=== PATIENT | male | born 1950 | race Caucasian/White ===

== ENCOUNTER 2022-03-03 17:58 | Observation (INO) | payer MEDICARE, BC, SELFPAY ==
[2022-03-03] VITALS (26 sets, daily range): BP systolic 141–181; BP diastolic 56–100; PULSE 59–68; RESP 18–20; TEMP 36.8; O2SAT 92–96; BMI 33.2; BMI 34.0
--- NOTE | 2022-03-03 19:20 | ED_ITS ---
HPI - General Adult General Date Seen: 03/03/22 Chief complaint: Difficulty Swallowing Stated complaint: Blurred vision, troubling swallowing Time Seen by Provider: 03/03/22 18:04 Source: patient and family History of Present Illness HPI narrative: Patient is a 71-year-old male with the past medical history of coronary artery disease, complete heart block, status post stenting most recently in 2017 and pacemaker placement, with onset of diplopia yesterday morning at about 9:00 a.m., and dysarthria which he noticed 1st this morning at about 7:00 a.m.. His says that his speech was normal last night when he went to bed. He does not report a headache at all. He has no prior history of stroke. He says he was driving yesterday morning when he noted that there were [address] road rather than 1. He says that the diplopia comes and goes. He says that he met a friend for coffee this morning who told him that his speech sounded off, and retrospectively he does feel that his speech is not normal. He says he called his cardiology clinic and was told to go in right away, they live normally in [place] but [place], so the closest place was [email or web address]. They went there, and had head CT and lab work, which they were told was normal. However, they were told to go somewhere that they could get an MRI. Therefore, they came here. He says after going to [email or web address] for the CT scan, he wanted to celebrate, so they stopped to get a soda. He says when he was trying to drink from a straw he noted that it was difficult to manipulate his tongue and swallow using a straw. He has not noted any difficulty with balance or hearing, he has not had any difficulty with weakness in his arms or legs, and has not had any sensory changes. He takes a baby aspirin daily. Related Data Home Medications Medication Instructions Recorded Confirmed aspirin 81 mg capsule 81 mg PO DAILY 03/03/22 03/03/22 bisoprolol fumarate 5 mg tablet 5 mg PO DAILY 03/03/22 03/03/22 finasteride 5 mg tablet (Proscar) 5 mg PO DAILY 03/03/22 03/03/22 lisinopril 20 mg tablet 20 mg PO DAILY 03/03/22 03/03/22 lorazepam 0.5 mg tablet (Ativan) 0.5 mg PO HS PRN 03/03/22 03/04/22 magnesium citrate 100 mg capsule 100 mg PO DAILY 03/03/22 03/03/22 nitroglycerin 0.4 mg sublingual 0.4 mg sublingual Q5M 03/03/22 03/03/22 tablet (Nitrostat) triamterene 37.5 1 tab PO DAILY 03/03/22 03/03/22 mg-hydrochlorothiazide 25 mg tablet (Maxzide-25mg) KYOLIC 03/04/22 amlodipine 10 mg tablet 10 mg PO DAILY 03/04/22 03/04/22 coenzyme Q10 200 mg capsule (Co 200 mg PO DAILY 03/04/22 03/04/22 Q-10) indomethacin 50 mg capsule 50 mg PO Q6H PRN 03/04/22 03/04/22 xzubncgj-pju-umqgh acid 300 1 tab PO DAILY 03/04/22 03/04/22 mcg-lycopene 600 mcg-lutein 300 mcg tablet (Centrum Silver Men) Previous Rx's Medication Instructions Recorded atorvastatin 40 mg tablet (Lipitor) 80 mg PO DAILY #60 tabs 03/04/22 clopidogrel 75 mg tablet 75 mg PO DAILY #30 tabs 03/04/22 Allergies Allergy/AdvReac Type Severity Reaction Status Date / Time Beta-Blockers Allergy Unknown Verified 03/03/22 18:35 (Beta-Adrenergic Bloc Review of Systems Status of ROS: Reports: 10 or more systems reviewed and unremarkable except as noted in History and below [facility] Medical History (Updated 03/03/22 @ 23:37 by Reji Esquivel MD) Benign prostatic hyperplasia Cataract Colon polyps Coronary artery disease Diverticulosis Essential hypertension Gout Hyperlipidemia Obesity Obstructive sleep apnea Presence of permanent cardiac pacemaker Psychophysiological insomnia Rotator cuff impingement syndrome of right shoulder Surgical History Stented coronary artery Family History Sister Uterine cancer Father Dementia Mother Dementia Brother Malignant melanoma Social History Smoking Status: Never smoker Do you use any of these nicotine containing products: None Second hand tobacco smoke exposure: No How often do you have a drink containing alcohol: never How often do you have six or more drinks on one occasion: Never AUDIT-C Alcohol total score: 0 Non-prescribed substance use: denies use Caffeine: Yes (couple cups coffee per day) service: No Exam Narrative: Exam Narrative: Vital signs as noted above. In general, an alert, nontoxic elderly male. Head: Normocephalic, atraumatic. Eyes: Pupils are equal reactive. Extraocular movements are full. Conjunctivae are normal. ENT: Mucous membranes are moist. Throat is normal. Neck: Supple without lymphadenopathy. Heart: Regular rate and rhythm. No murmur or rub. Lungs: Clear bilaterally. No increased work of breathing, crackles or wheezes. Abdomen: Soft and nontender. No organomegaly. Extremities: Well perfused. No edema. No calf tenderness. Pulses intact. Neurologic: Patient is alert and oriented to person and place. Speech is fluent but dysarthric. Face is symmetric. Moves all extremities equally, strength is 5 5 bilaterally. Fine motor function is intact. Cerebellar function is intact by finger-nose testing. Diplopia on leftward and downward gaze, clears with rightward and upward gaze. Affect: Normal. Skin: Warm and dry. Well perfused. Const: Vital Signs, click to edit/add: Vital Signs - 24 hr 03/03/22 18:30 03/03/22 18:19 03/03/22 18:20 Temperature 98.3 F Pulse Rate 67 68 Pulse Rate [Left] 60 Blood Pressure 158/95 H Blood Pressure [Ri ght Upper Arm] 158/95 H Pulse Oximetry 92 95 93 Oxygen Delivery Me thod Room Air 03/03/22 18:25 03/03/22 18:30 03/03/22 18:45 Temperature Pulse Rate 64 61 60 Pulse Rate [Left] Blood Pressure 162/95 H Blood Pressure [Ri ght Upper Arm] Pulse Oximetry 92 94 92 Oxygen Delivery Me thod 03/03/22 18:55 03/03/22 19:00 03/03/22 19:15 Temperature Pulse Rate 60 60 60 Pulse Rate [Left] Blood Pressure 157/87 H Blood Pressure [Ri ght Upper Arm] Pulse Oximetry 93 92 93 Oxygen Delivery Me thod 03/03/22 19:24 03/03/22 19:30 03/03/22 19:45 Temperature Pulse Rate 63 61 60 Pulse Rate [Left] Blood Pressure 157/100 H Blood Pressure [Ri ght Upper Arm] Pulse Oximetry 93 95 92 Oxygen Delivery Me thod 03/03/22 19:54 03/03/22 20:00 03/03/22 20:15 Temperature Pulse Rate 59 L 60 60 Pulse Rate [Left] Blood Pressure 154/94 H Blood Pressure [Ri ght Upper Arm] Pulse Oximetry 94 92 95 Oxygen Delivery Me thod 03/03/22 20:30 03/03/22 20:33 03/03/22 20:45 Temperature Pulse Rate 60 60 60 Pulse Rate [Left] Blood Pressure 148/92 H Blood Pressure [Ri ght Upper Arm] Pulse Oximetry 94 96 96 Oxygen Delivery Me thod 03/03/22 21:00 03/03/22 21:03 Temperature Pulse Rate 60 60 Pulse Rate [Left] Blood Pressure 153/99 H Blood Pressure [Ri ght Upper Arm] Pulse Oximetry 95 95 Oxygen Delivery Me thod Course Course Hospital Course: Following initial evaluation, I began to look into MRI testing. I did give him an aspirin, 325 mg. Patient does have an MR conditional pacemaker, but we do not do MRIs with pacemakers here. I talked with Neurology at [facility], who recomm ended ideally MRI, dual anti-platelet therapy. There were no beds at [facility], I called around to other [facility] and there were no med/surg beds available anywhere. Barring that, neurology recommended doing a CT angiogram here, admission for observation and dual antiplatelet therapy, then outpatient referral to primary care and MRI at a center with pacemaker compatible MRI. Therefore, given lack of available beds, we will keep him here for admission overnight, observation and outpatient follow-up. CT angiogram is pending at this time. He has been neurologically stable and without other complaints. Reevaluation(s) Reevaluation #1: Patient remained stable throughout his ER stay. CT angiogram was unremarkable per Radiology read. Patient admitted to floor under [facility] care. Suspect brainstem stroke, with symptom onset over [address] of the head with out contrast was done at [facility], presumably negative. Without MR imaging other possible causes such as mass or multiple sclerosis could not be ruled out, but given patient's age and onset of symptoms, I think stroke is more likely. Vital Signs Vital signs: Initial Vital Signs Pulse Rate 67 03/03/22 18:19 Pulse Oximetry 95 03/03/22 18:19 Vital Signs Pulse Rate 67 03/03/22 18:19 Pulse Oximetry 95 03/03/22 18:19 Temperature 98.1 F 03/04/22 15:15 Pulse Rate 60 03/04/22 16:38 Respiratory Rate 16 03/04/22 15:15 Blood Pressure 137/85 03/04/22 15:15 Pulse Oximetry 92 03/04/22 15:15 Oxygen Delivery Method 03/04/22 15:15 Medical Decision Making Lab Data Labs: Lab Results 03/03/22 Range/Units 21:02 POC Creatinine 0.9 (0.6-1.3) mg/dl Discharge Plan Discharge Condition: Stable Activity Level: No Restrictions Discharge Diet: Heart Healthy (2 gm sodium, low fat)
[2022-03-03] MEDS: ASPIRIN 81 MG TAB.CHEW 324 MG PO (19:25)
--- NOTE | 2022-03-03 20:12 | CT_ITS ---
Patient: JOSE ALBERTO ZAZUETA Facility:?[facility] Patient ID:?[id number] Site Patient ID:?[id number]. Site :?[id number] Study:?CT-Head Angio W/IV CONTRAST-03/03/2022 9:31:46 PM Ordering Physician:Minal May Final Report: DATE: 03/03/2022. CLINICAL HISTORY: Blurred vision; trouble swallowing. TECHNIQUE: Standard helical CT image acquisition through the head and neck was performed after intravenous contrast bolus enhancement. Multiplanar reconstructed images were performed and interpreted. COMPARISON: None available. FINDINGS: The origins of the great vessels from the aortic arch are patent. The origins of the right and left vertebral arteries are patent. The common carotid arteries are patent. No significant luminal stenoses of the proximal internal carotid arteries by NASCET criteria. The more distal cervical segments of the internal carotid arteries are patent. The cervical segments of the vertebral arteries are patent. Scattered intracranial atherosclerotic disease without proximal large vessel occlusion or flow-limiting luminal stenosis. No evidence of cerebral aneurysm or findings to suggest an arteriovenous shunting lesion. IMPRESSION: 1. No intracranial proximal large vessel occlusion or flow-limiting luminal stenosis. 2. Patent cervical arterial vasculature without hemodynamically significant luminal stenosis. Please note that all CT scans at this facility use dose modulation, iterative reconstruction, and/or weight-based dosing when appropriate to reduce radiation dose to as low as reasonably achievable. Dictated by Shubham Quinonez MD @ 03/04/2022 5:41:34 PM Signed by:?Shubham Quinonez MD @03/04/2022 5:41:34 PM (Electronic Signature)
[2022-03-03 21:16] LABS: Creatinine, Point-of-Care* 0.9 mg/dl (0.6-1.3)
--- NOTE | 2022-03-03 22:33 | ED.NURSE ---
Patient to transfer to med/surg via wheelchair with library cataloging technician.
--- NOTE | 2022-03-03 23:10 | P.IMHP_ITS ---
Hospitalist- H&P: [place] History of Present Illness Time Seen by Provider: 22:00 Date Seen: 03/03/22 Chief complaint: Double vision, slurred speech Narrative: Junito Kwan is a 71 year old man was in his usual state of health until yesterday around 9:00 a.m. in the morning he noticed vertical diplopia. He noticed yesterday that if he would closed 1 eye then he would see perfectly fine. He would close the other eye and he would see perfectly fine also. He open both eyes and he had vertical diplopia. He had only about 2 hours of sleep the night prior, so he thought nothing of the diplopia except for the thought that if he got some sleep maybe would resolve. It did not resolve. Still has diplopia today. Notice slurred speech today as well. He had no concerns understanding others or articulating himself except for he felt that his speech was slurred. Denied any other focal motor neurologic deficits. Has not had palpitations or chest fluttering. Has not had chest heaviness, pressure, tightness, or pain. Denies syncope or near-syncope. Denies nausea or vomiting. Called his wool washing machine operator who recommended that he be assessed for this promptly. He lives variously between [place], [place], and his [place]s farm which is near [place], [place]. He contemplated going to [facility] where he receives most of his health cares, but opted instead to go to [facility] since he was told to get immediate evaluation and treatment and he has been here in the [place] area this week. In [place] they assessed him and indicated that they did not think he had an acute stroke and they then discharged him. The patient tells me that he had a simple CT scan without contrast. He later called his nephew who is a physician. His nephew after hearing that he had diplopia as well as his slurred speech recommended that he go to a hospital where they have an MRI so they can do more appropriate testing. The patient heard that [facility] as an MR scan and thus came over here for further testing. Unfortunately the patient has a permanent pacemaker implantation and we do not have the capability of studying him safely in our MR scan. Nevertheless the CT angiogram of the head and neck was performed and demonstrates no obvious acute abnormalities. Stroke Neurology was called and the case was discussed. They recommended admission for observation and consider outpatient MR scan if still warranted. Additionally they recommended initiation of treatment for possible stroke. Review of Systems Status of ROS: Reports: 10 or more systems reviewed and unremarkable except as noted in History and below Narrative: Denies fevers, rigors, diaphoresis. Denies night sweats or weight loss. Denies myalgias or arthralgias. Denies rashes. No recent acute illness. No recent trauma or injury. No blood loss of any sort. No recent travel outside the [facility]. Again no other focal motor neurologic deficits. Denies dyspnea at rest, paroxysmal nocturnal dyspnea, orthopnea, or dyspnea with exertion. Denies cough. No polyuria, polydipsia, polyphagia. No dysuria, urgency, frequency, or hematuria. No diarrhea or constipation. Designates his as power of compensation manager for health should that be required. Requests full resuscitation in the event of cardiopulmonary demise, but clearly states that he does not want to be kept alive in a persistent vegetative state. [facility] Medical History (Updated 03/03/22 @ 23:37 by Reji Esquivel MD) Benign prostatic hyperplasia Cataract Colon polyps Coronary artery disease Diverticulosis Essential hypertension Gout Hyperlipidemia Obesity Obstructive sleep apnea Presence of permanent cardiac pacemaker Psychophysiological insomnia Rotator cuff impingement syndrome of right shoulder Surgical History Stented coronary artery Family History Sister Uterine cancer Father Dementia Mother Dementia Brother Malignant melanoma Social History Smoking Status: Never smoker Do you use any of these nicotine containing products: None Second hand tobacco smoke exposure: No How often do you have a drink containing alcohol: never How often do you have six or more drinks on one occasion: Never AUDIT-C Alcohol total score: 0 Non-prescribed substance use: denies use Meds Home Medications and Allergies Home Medications Medication Instructions Recorded Confirmed Type aspirin 81 mg capsule 81 mg PO DAILY 03/03/22 03/03/22 History atorvastatin 40 mg tablet 40 mg PO DAILY 03/03/22 03/03/22 History bisoprolol fumarate 5 mg tablet 5 mg PO DAILY 03/03/22 03/03/22 History finasteride 5 mg tablet (Proscar) 5 mg PO DAILY 03/03/22 03/03/22 History indomethacin 50 mg 03/03/22 History lisinopril 20 mg tablet 20 mg PO DAILY 03/03/22 03/03/22 History lorazepam 0.5 mg tablet (Ativan) 0.5 mg PO DAILY 03/03/22 03/03/22 History magnesium citrate 100 mg capsule 100 mg PO DAILY 03/03/22 03/03/22 History nitroglycerin 0.4 mg sublingual 0.4 mg sublingual Q5M 03/03/22 03/03/22 History tablet (Nitrostat) ticagrelor .ROUTE 03/03/22 History triamterene 37.5 1 tab PO DAILY 03/03/22 03/03/22 History mg-hydrochlorothiazide 25 mg tablet (Maxzide-25mg) Allergies Allergy/AdvReac Type Severity Reaction Status Date / Time Beta-Blockers Allergy Unknown Verified 03/03/22 18:35 (Beta-Adrenergic Bloc Exam Narrative: Exam Narrative: Appears comfortable, no acute distress. Friendly, articulate, cooperative. Mood and affect are congruent. Alert, oriented to self, place, time, situation. Thoughtful, excellent recall, excellent executive function. Hearing is grossly normal. Vision is actually grossly normal as well. Pupils are equally round and reactive to light and accommodation. Extraocular muscles are intact. No icterus or conjunctival injection. Slight facial droop on the right, according to patient and his this is not new. Dentition in fair repair. Tight oral aperture. Gag reflex intact. Able to swallow liquids without cough or aspiration. Tongue does not deviate to 1 side or the other. Able to perform pa-ta-ka articulation maneuvers and integrate these without deficit. No focal motor neurologic deficits of upper and lower extremities. Strength testing is full in upper and lower extremities. Deep tendon reflexes are full in upper and lower extremities. Negative Babinski. Independent in transfer, station, and gait. No tremor, asterixis, or ataxia. Neck is supple. Midline trachea. Normal thyroid. No JVD, hepatojugular reflux, or carotid bruits. Lungs are clear to auscultation, without wheezing, rhonchi, or rales. Chest wall excursions are full. No CVA tenderness. Heart tones with regular rhythm, normal S1-S2, without murmur, gallop, or rub. PMI is not laterally displaced. Abdomen is obese with active bowel sounds, soft, nontender. No rebound or guarding. No organomegaly or masses. Extremities without edema. Palpable pulses in upper and lower extremities. Capillary refill less than 3 seconds. Skin is intact, without rashes, petechiae, cyanosis. No of evidence of microemboli in fingers or toes. Telemetry demonstrates paced rhythm. No dysrhythmia. Const: Vital Signs, click to edit/add: Vital Signs - 24 hr 03/03/22 18:30 03/03/22 18:19 03/03/22 18:20 Temperature 98.3 F Pulse Rate 67 68 Pulse Rate [Left] 60 Respiratory Rate Blood Pressure 158/95 H Blood Pressure [Le ft Arm] Blood Pressure [Ri ght Upper Arm] 158/95 H Pulse Oximetry 92 95 93 Oxygen Delivery Me thod Room Air 03/03/22 18:25 03/03/22 18:30 03/03/22 18:45 Temperature Pulse Rate 64 61 60 Pulse Rate [Left] Respiratory Rate Blood Pressure 162/95 H Blood Pressure [Le ft Arm] Blood Pressure [Ri ght Upper Arm] Pulse Oximetry 92 94 92 Oxygen Delivery Me thod 03/03/22 18:55 03/03/22 19:00 03/03/22 19:15 Temperature Pulse Rate 60 60 60 Pulse Rate [Left] Respiratory Rate Blood Pressure 157/87 H Blood Pressure [Le ft Arm] Blood Pressure [Ri ght Upper Arm] Pulse Oximetry 93 92 93 Oxygen Delivery Me thod 03/03/22 19:24 03/03/22 19:30 03/03/22 19:45 Temperature Pulse Rate 63 61 60 Pulse Rate [Left] Respiratory Rate Blood Pressure 157/100 H Blood Pressure [Le ft Arm] Blood Pressure [Ri ght Upper Arm] Pulse Oximetry 93 95 92 Oxygen Delivery Me thod 03/03/22 19:54 03/03/22 20:00 03/03/22 20:15 Temperature Pulse Rate 59 L 60 60 Pulse Rate [Left] Respiratory Rate Blood Pressure 154/94 H Blood Pressure [Le ft Arm] Blood Pressure [Ri ght Upper Arm] Pulse Oximetry 94 92 95 Oxygen Delivery Me thod 03/03/22 20:30 03/03/22 20:33 03/03/22 20:45 Temperature Pulse Rate 60 60 60 Pulse Rate [Left] Respiratory Rate Blood Pressure 148/92 H Blood Pressure [Le ft Arm] Blood Pressure [Ri ght Upper Arm] Pulse Oximetry 94 96 96 Oxygen Delivery Me thod 03/03/22 21:00 03/03/22 21:03 03/03/22 21:04 Temperature Pulse Rate 60 60 60 Pulse Rate [Left] Respiratory Rate Blood Pressure 153/99 H Blood Pressure [Le ft Arm] Blood Pressure [Ri ght Upper Arm] Pulse Oximetry 95 95 96 Oxygen Delivery Me thod 03/03/22 21:25 03/03/22 21:30 03/03/22 21:33 Temperature Pulse Rate 60 63 65 Pulse Rate [Left] Respiratory Rate Blood Pressure 145/94 H Blood Pressure [Le ft Arm] Blood Pressure [Ri ght Upper Arm] Pulse Oximetry 95 96 Oxygen Delivery Me thod 03/03/22 22:03 03/03/22 22:48 03/03/22 22:48 Temperature 98.3 F Pulse Rate Pulse Rate [Left] Respiratory Rate 18 Blood Pressure 181/94 H Blood Pressure [Le ft Arm] 141/56 H Blood Pressure [Ri ght Upper Arm] Pulse Oximetry 95 96 Oxygen Delivery Me thod Room Air Room Air Documenting provider has reviewed patient's vital signs: yes Hospitalist - H&P: Result ECG Prior ECG tracings: not available for review Interpretation: Paced rhythm. Imaging CT angiogram of head and neck: Radiologist's impression: Preliminary report demonstrates no sign of occlusion or significant aneurysm in the brain. Dominant left vertebral artery. Atherosclerotic calcifications of cavernous carotids and carotid siphons without significant stenosis. No sign of dissection or significant stenosis in the neck. Mild scattered atherosclerotic calcifications without significant stenosis in the neck. Assessment and Plan Assessment and plan (1) Stroke: Problem comment: Possible stroke but with multifocal sites suggesting micro emboli versus v asculitis versus other etiology, including non-stroke Status: Acute (2) Diplopia: Problem comment: Vertical diplopia noted 03/02/2022 Status: Acute (3) Dysarthria: Problem comment: Slurred speech noted 03/03/2022 Status: Acute (4) Essential hypertension: Status: Acute (5) Hyperlipidemia: Status: Acute (6) Coronary artery disease: Problem comment: s/p stent 2017 x 2: prox circumflex to OM and MARIN mid RCA Status: Acute Plan 1. Reviewed with patient and his . 2. Discussed with our emergency department physician. 3. Admit for observation. 4. Telemetry, echo, serial neuro exams. 5. Dual anti-platelet therapy for 21 days with aspirin and clopidogrel, then continue with aspirin therapy thereafter. No indication for anticoagulation at this juncture. 6. Allow for permissive hypertension for now. 7. Increased dose of atorvastatin from 40 mg daily to 80 mg daily. 8. Check a C-reactive protein and erythrocyte sedimentation rate. No other signs or symptoms to be concerned about possible antiphospholipid antibody syndrome thus will not be checking for that. 9. Consider aortogram, again to look for possible source of cholesterol emboli. For now will obtain the transthoracic echocardiogram. 10. Physical therapy and occupational therapy to assess. Unfortunately we do not have speech therapy over the weekend. May need to consider speech therapy assessment at a later date. 11. Consider MRI of the brain at a later date. 12. Consider transfer if his condition worsens suddenly. 13. Answered his and his 's questions to their satisfaction. 14. Patient are agreeable to above stated plans and recommendations.
[2022-03-04] VITALS (7 sets, daily range): BP systolic 134–143; BP diastolic 79–85; PULSE 60–66; RESP 16–20; TEMP 36.6–36.9; O2SAT 92–94
[2022-03-04] MEDS: ENOXAPARIN 100 MG/ML INJ SUBCUT ×2 (02:11→14:16)
[2022-03-04 02:35] LABS: Basophils Absolute Auto 0.03 K/uL (0.00-0.30); Basophils Percent Auto 0.4 % (0.0-3.0); Eosinophils Absolute Auto 0.16 K/uL (0.00-0.50); Eosinophils Percent Auto 2.4 % (0.0-7.0); Hematocrit 43.7 % (37.0-53.0); Hemoglobin* 14.8 gm/dL (13.5-17.5); Lymphocytes Percent Auto 22.4 % (20-44); Mean Corpuscular HGB Conc 34 gm/dL (32-36); Mean Corpuscular Hemoglobin 31 pg (26-34); Mean Corpuscular Volume 92 fL (80-100); Monocytes Percent Auto 10.6 % (0.0-11.0); Neutrophils Percent Auto 64.2 % (42.0-72.0); Platelet Count* 243 K/uL (140-440); RDW Coefficient of Variation % 13.5 % (11.5-15.5); Red Blood Count 4.76 m/uL (4.30-5.90)
[2022-03-04 02:36] LABS: Slide Review Reflex No
--- NOTE | 2022-03-04 05:20 | PC.NURSE ---
Admission/shift note: Pt admitted to room 256 for possible CVA, lovenox given. pt pleasant and cooperative, A&O. Denies pain, SOB, CP, N/V, dizziness and HECK. Up independent and tolerating well. Pt has slurred speech but is easy to understand, says his double vision is still present but improved from earlier. No one side weakness noted. CPAP on at HS. Tele is paced rhythm. Oxygen saturations >90%.
[2022-03-04 07:11] LABS: Hematocrit 46.4 % (37.0-53.0); Hemoglobin* 15.5 gm/dL (13.5-17.5); Mean Corpuscular HGB Conc 33 gm/dL (32-36); Mean Corpuscular Hemoglobin 31 pg (26-34); Mean Corpuscular Volume 92 fL (80-100); Platelet Count* 251 K/uL (140-440); Red Blood Count 5.02 m/uL (4.30-5.90); White Blood Count* 6.01 K/uL (4.50-11.00)
[2022-03-04 07:12] LABS: Slide Review Reflex No
[2022-03-04 07:34] LABS: Albumin* 4.2 g/dL (3.3-5.0); Chloride* 104 mmol/L (96-114)
[2022-03-04 07:35] LABS: Sodium* 139 mmol/L (135-149)
[2022-03-04 07:37] LABS: Alkaline Phosphatase* 68 U/L (40-150); Aspartate Amino Transferase* 29 U/L (12-35); Blood Urea Nitrogen* 19 mg/dL (7-30); Carbon Dioxide* 28 mmol/L (20-32); Cholesterol* 125 mg/dL (90-199); Creatinine* 1.1 mg/dL (0.5-1.5); Est. Creatinine Clearance* 61.59; Estimated Glomerular Filt Rate 72 ml/min; Total Protein* 6.7 g/dL (6.0-8.3)
[2022-03-04 07:38] LABS: Alanine Aminotransferase* 29 U/L (4-50); Calcium* 9.3 mg/dL (8.4-10.6); Glucose* 90 mg/dL (60-115); HDL Cholesterol* 31 mg/dL (>=40); LDL Cholesterol Calculated 71 mg/dL (<100); Triglycerides* 113 mg/dL (40-149)
[2022-03-04 07:57] LABS: C Reactive Protein* < 0.5 mg/dL (0.5-1.0)
[2022-03-04 08:01] LABS: Erythrocyte SedimentationRate* 2 mm/hr (2-15)
[2022-03-04] MEDS: ASPIRIN 81 MG TABLET EC PO (09:05)
[2022-03-04] MEDS: LORazepam 0.5 MG TABLET PO (09:06)
[2022-03-04] MEDS: ATORVASTATIN CALCIUM 40 MG TABLET 80 MG PO (09:06)
[2022-03-04] MEDS: FINASTERIDE 5 MG TABLET PO (09:06)
--- NOTE | 2022-03-04 13:43 | PC.NURSE ---
PT, OT evaluations completed. No dysphagia with meds. Eval by Dr. Cindy Duncan and myself. VSS. Pt's interested in test results, RN explained that Dr. Duncan will wait until Echocardiogram is completed this afternoon to deliver test results. Possible d/c after testing is completed. Pt UAL and walked in hallway w/o balance difficulty SBA of PT.
--- NOTE | 2022-03-04 13:47 | PC.NURSE ---
Telemetry indicates an atrial paced rhythm, 1st degree HB with BBB.
--- NOTE | 2022-03-04 14:59 | PM.DS1 ---
DS: Providers Provider Time Seen by Provider: 07:30 Date Seen: 03/04/22 Date of admission: 03/03/22 22:40 Primary care physician: Not a Local Provider Admitting Clinician: Reji Esquivel MD Consults: 03/03/22 22:52 Consult to Physical Therapy [CONS] Routine Comment: Reason(s) for PT Consult:: Evaluate and Treat Any Restrictions?:: No Restrictions 03/03/22 22:55 Consult to Occupational Therapy [CONS] Routine Comment: Reason(s) for OT Consult:: Evaluate and Treat Any Restrictions?:: No Restrictions Attending Physician on discharge: Reji Esquivel MD Date of Discharge: 03/04/22 DS: Diagnosis Discharge Diagnosis (1) Coronary artery disease: Status: Acute Problem details: s/p stent 2017 x 2: prox circumflex to OM and MARIN mid RCA (2) Hyperlipidemia: Status: Acute (3) Essential hypertension: Status: Acute (4) Stroke: Status: Acute Problem details: Possible stroke but with multifocal sites suggesting micro emboli versus vasculitis versus other etiology, including non-stroke (5) Dysarthria: Status: Acute Problem details: Slurred speech noted 03/03/2022 (6) Diplopia: Status: Acute Problem details: Vertical diplopia noted 03/02/2022 DS: Summary Hospital Course Hospital Course: This is a 71-year-old male had sudden onset of vertical diplopia and dysarthria. He did not have any other focal neurologic symptoms. He has not had any chest pain, lightheadedness, shortness of breath, or syncope. CT angiogram of the head and neck was obtained with no obvious acute abnormalities. Stroke Neurology was called and recommended aspirin indefinitely plus Plavix for 30 days. outpatient MRI. This patient has a pacemaker and we do not have the capability we starting him in our MRI scanner. This patient was initiated on aspirin and has also now been started on clopidogrel. We do not have speech therapy over the weekend, so this will be assessed as an outpatient. Will also refer him to Neurology to set up an MRI. His atorvastatin has been increased to 80 mg daily. His condition has remained stable and he has had no worsening of symptoms. He is discharged home today after an echocardiogram and he is in stable condition. Time Spent with Patient Time attestation: Total time spent providing and/or coordinating discharge services: Exam Narrative: Exam Narrative: General: No acute distress. Awake, alert, oriented x3. No pallor. No jaundice. Oropharynx: Clear. Mucous membranes moist. Cardiovascular: Regular rate and rhythm. No murmurs, gallops, or rubs. Respiratory: Clear to auscultation bilaterally. No wheezes or crackles. Abdomen: Bowel sounds present. Soft, nondistended, nontender. Extremities: No pedal edema. Neuro: Mild right-sided facial droop noted. Talkative, no difficulty with word finding, dysarthria. Romberg is negative. Cranial nerves 2-12 are intact. Extraocular movements are full. No nystagmus. Tongue is midline. Peripheral vision and vision are grossly intact. Strength is 5/5 in all 4 extremities. Light touch sensation is intact in face body and extremities. Coordination is intact in upper and lower extremities. Const: Vital Signs, click to edit/add: Vital Signs - 24 hr 03/03/22 18:30 03/03/22 18:19 03/03/22 18:20 Temperature 98.3 F Pulse Rate 67 68 Pulse Rate [Left P ulse Oximeter] Pulse Rate [Left] 60 Respiratory Rate Blood Pressure 158/95 H Blood Pressure [Le ft Arm] Blood Pressure [Ri ght Upper Arm] 158/95 H Pulse Oximetry 92 95 93 Oxygen Delivery Me thod Room Air 03/03/22 18:25 03/03/22 18:30 03/03/22 18:45 Temperature Pulse Rate 64 61 60 Pulse Rate [Left P ulse Oximeter] Pulse Rate [Left] Respiratory Rate Blood Pressure 162/95 H Blood Pressure [Le ft Arm] Blood Pressure [Ri ght Upper Arm] Pulse Oximetry 92 94 92 Oxygen Delivery Me thod 03/03/22 18:55 03/03/22 19:00 03/03/22 19:15 Temperature Pulse Rate 60 60 60 Pulse Rate [Left P ulse Oximeter] Pulse Rate [Left] Respiratory Rate Blood Pressure 157/87 H Blood Pressure [Le ft Arm] Blood Pressure [Ri ght Upper Arm] Pulse Oximetry 93 92 93 Oxygen Delivery Me thod 03/03/22 19:24 03/03/22 19:30 03/03/22 19:45 Temperature Pulse Rate 63 61 60 Pulse Rate [Left P ulse Oximeter] Pulse Rate [Left] Respiratory Rate Blood Pressure 157/100 H Blood Pressure [Le ft Arm] Blood Pressure [Ri ght Upper Arm] Pulse Oximetry 93 95 92 Oxygen Delivery Me thod 03/03/22 19:54 03/03/22 20:00 03/03/22 20:15 Temperature Pulse Rate 59 L 60 60 Pulse Rate [Left P ulse Oximeter] Pulse Rate [Left] Respiratory Rate Blood Pressure 154/94 H Blood Pressure [Le ft Arm] Blood Pressure [Ri ght Upper Arm] Pulse Oximetry 94 92 95 Oxygen Delivery Me thod 03/03/22 20:30 03/03/22 20:33 03/03/22 20:45 Temperature Pulse Rate 60 60 60 Pulse Rate [Left P ulse Oximeter] Pulse Rate [Left] Respiratory Rate Blood Pressure 148/92 H Blood Pressure [Le ft Arm] Blood Pressure [Ri ght Upper Arm] Pulse Oximetry 94 96 96 Oxygen Delivery Me thod 03/03/22 21:00 03/03/22 21:03 03/03/22 21:04 Temperature Pulse Rate 60 60 60 Pulse Rate [Left P ulse Oximeter] Pulse Rate [Left] Respiratory Rate Blood Pressure 153/99 H Blood Pressure [Le ft Arm] Blood Pressure [Ri ght Upper Arm] Pulse Oximetry 95 95 96 Oxygen Delivery Me thod 03/03/22 21:25 03/03/22 21:30 03/03/22 21:33 Temperature Pulse Rate 60 63 65 Pulse Rate [Left P ulse Oximeter] Pulse Rate [Left] Respiratory Rate Blood Pressure 145/94 H Blood Pressure [Le ft Arm] Blood Pressure [Ri ght Upper Arm] Pulse Oximetry 95 96 Oxygen Delivery Me thod 03/03/22 22:03 03/03/22 22:48 03/03/22 22:48 Temperature 98.3 F Pulse Rate Pulse Rate [Left P ulse Oximeter] Pulse Rate [Left] Respiratory Rate 18 Blood Pressure 181/94 H Blood Pressure [Le ft Arm] 141/56 H Blood Pressure [Ri ght Upper Arm] Pulse Oximetry 95 96 Oxygen Delivery Me thod Room Air Room Air 03/03/22 22:52 03/04/22 00:33 03/04/22 02:42 Temperature 98 F Pulse Rate 60 Pulse Rate [Left P ulse Oximeter] 60 Pulse Rate [Left] Respiratory Rate 20 20 Blood Pressure Blood Pressure [Le ft Arm] 143/85 H Blood Pressure [Ri ght Upper Arm] Pulse Oximetry 95 94 Oxygen Delivery Me thod Room Air Room Air 03/04/22 07:25 03/04/22 07:55 03/04/22 12:45 Temperature 98.5 F 98.1 F Pulse Rate 61 Pulse Rate [Left P ulse Oximeter] 66 65 Pulse Rate [Left] Respiratory Rate 20 20 Blood Pressure Blood Pressure [Le ft Arm] 137/79 134/80 Blood Pressure [Ri ght Upper Arm] Pulse Oximetry 94 94 Oxygen Delivery Me thod Room Air CPAP Documenting provider has reviewed patient's vital signs: yes DS: Data Data Completed and Pending Completed studies during hospitalization: CTA head: No sign of occlusion or significant aneurysm. Dominant left vertebral artery. Atherosclerotic calcifications of the cavernous carotids and carotid siphons without significant stenosis. CTA neck: No sign of dissection or significant stenosis. Scattered atherosclerotic calcifications without significant stenosis. EKG 03/03/22 18:18 Atrial sensed ventricular paced rhythm, heart rate 65 beats per minute. Final ECHO results pending. Labs on day of discharge: Labs from last 24 hours 03/04/22 03/04/22 03/04/22 05:55 05:55 05:55 WBC RBC Hgb Hct MCV MCH MCHC RDW Coeff of Blue Plt Count Neut % (Auto) Lymph % (Auto) [place] % (Auto) Eos % (Auto) Baso % (Auto) Neut # (Auto) Lymph # (Auto) [place] # (Auto) Eos # (Auto) Baso # (Auto) Abs Immat Gran (auto) ESR 2 Sodium 139 Potassium 4.0 Chloride 104 Carbon Dioxide 28 BUN 19 Creatinine 1.1 Estimated Creat Clear 61.59 Estimated GFR 72 Glucose 90 Calcium 9.3 Total Bilirubin 1.0 AST 29 ALT 29 Alkaline Phosphatase 68 C-Reactive Protein < 0.5 L Total Protein 6.7 Albumin 4.2 Triglycerides 113 Cholesterol 125 LDL Cholesterol, Calc 71 HDL Cholesterol 31 L TSH 2.090 POC Creatinine 03/04/22 03/04/22 03/03/22 05:55 02:30 21:02 WBC 6.01 6.70 RBC 5.02 4.76 Hgb 15.5 14.8 Hct 46.4 43.7 MCV 92 92 MCH 31 31 MCHC 33 34 RDW Coeff of Blue 13.5 Plt Count 251 243 Neut % (Auto) 64.2 Lymph % (Auto) 22.4 [place] % (Auto) 10.6 Eos % (Auto) 2.4 Baso % (Auto) 0.4 Neut # (Auto) 4.30 Lymph # (Auto) 1.50 [place] # (Auto) 0.70 Eos # (Auto) 0.16 Baso # (Auto) 0.03 Abs Immat Gran (auto) 0.00 ESR Sodium Potassium Chloride Carbon Dioxide BUN Creatinine Estimated Creat Clear Estimated GFR Glucose Calcium Total Bilirubin AST ALT Alkaline Phosphatase C-Reactive Protein Total Protein Albumin Triglycerides Cholesterol LDL Cholesterol, Calc HDL Cholesterol TSH POC Creatinine 0.9 Discharge Plan Discharge Disposition: Home, Self-Care Date of Admission: 03/03/22 22:40 Attending Provider on Discharge: Cindy Duncan Primary Care Provider: Provider,Not a Local Condition: Stable Anticipated Discharge Date/Time: 03/04/22 18:07 Discharge Medications: New atorvastatin [Lipitor] 40 mg Tablet 80 mg PO DAILY Qty: 60 0RF clopidogrel 75 mg tablet 75 mg PO DAILY Qty: 30 0RF Continued aspirin 81 mg capsule 81 mg PO DAILY bisoprolol fumarate 5 mg tablet 5 mg PO DAILY finasteride [Proscar] 5 mg tablet 5 mg PO DAILY lorazepam [Ativan] 0.5 mg tablet 0.5 mg PO HS PRN magnesium citrate 100 mg capsule 100 mg PO DAILY nitroglycerin [Nitrostat] 0.4 mg tablet, sublingual 0.4 mg sublingual Q5M Rx Instructions: do not exceed 3 doses per episode Centrum Silver Men 300-600-300 mcg tablet 1 tab PO DAILY KYOLIC 100 mg capsule Rx Instructions: KYOLIC GARLIC coenzyme Q10 [Co Q-10] 200 mg capsule 200 mg PO DAILY Held lisinopril 20 mg tablet 20 mg PO DAILY Hold Instructions: Resume on 03/06/22. triamterene-hydrochlorothiazid [Maxzide-25mg] 37.5-25 mg tablet 1 tab PO DAILY Hold Instructions: Resume on 03/06/22. amlodipine 10 mg tablet 10 mg PO DAILY Hold Instructions: Resume on 03/06/22. Label Comments: Take 1 Tablet (10 mg) by mouth once daily indomethacin 50 mg capsule 50 mg PO Q6H PRN Hold Instructions: Resume on 04/05/22. Label Comments: Take 1 Capsule (50 mg) by mouth every 6 hours if needed for Gout Pain. Discontinued atorvastatin 40 mg tablet 40 mg PO DAILY Discharge Orders: Discharge Order (Routine); Ordered 03/04/22 Ordered By: Cindy Duncan Patient Education: Ischemic Stroke (DC) Additional Instructions: Outpatient cognitive assessment through Occupational Therapy. Follow up with neurology for stroke and to set up MRI (patient has pacemaker). Speech Therapy for dysarthria. No driving due to diplopia until re-evaluated by Neurology or primary care provider. Activity Level: No Restrictions Discharge Diet: Heart Healthy (2 gm sodium, low fat) Follow Up Appointments: Provider,Not a Local [Primary Care Provider] - Forms: [employer] Info Instructions
--- NOTE | 2022-03-04 19:53 | PC.NURSE ---
Shift [id number]- Patient is alert and oriented, ambulates independently. Slight right facial droop, which is previous, per report. He states diplopia is improved, but still happens intermittently. He is sent home with one dose of clopidigrel due to prescription being sent to wrong pharmacy- house sup and charge ok. IV is D/C'd with catheter intact. Discharge instructions are given verbally and in print and all questions are answered. He leaves with all belongings with family member via wheelchair.
== END 2022-03-04 19:45 | disposition home or self-care (01) ==
LOC: ED 19:23 → MEDSURG 22:42
PROVIDERS: Internal Medicine; Admitting Provider Internal Medicine; Emergency Provider Emergency Medicine; Visit Provider Internal Medicine
DX: I25.10 Atherosclerotic heart disease of native coronary artery without angina pectoris (principal); H53.2 Diplopia; R47.1 Dysarthria and anarthria; E78.5 Hyperlipidemia, unspecified; I10 Essential (primary) hypertension; Z95.0 Presence of cardiac pacemaker; Z79.82 Long term (current) use of aspirin; I45.5 Other specified heart block; D29.1 Benign neoplasm of prostate
CPT/HCPCS: 36415; 70496; 70498; 80053; 80061; 82565; 84443; 85025; 85027; 85651; 86140; 87635; 93306; 96372; 97112; 97161; 97165; 97535; 99284; G0378; A9270; G0379; J1650; Q9967

== ENCOUNTER 2022-12-23 14:37 | Emergency (ER) | payer MEDICARE, BC, SELFPAY ==
[2022-12-23] VITALS (12 sets, daily range): BP systolic 131–159; BP diastolic 90–106; PULSE 86–92; RESP 16–18; TEMP 35.7; O2SAT 93–96; BMI 35.4
--- NOTE | 2022-12-23 15:24 | CRLHL7_ITS ---
For Patients: As a result of the Century Cures Act, medical imaging exams and procedure reports are released immediately into your electronic medical record. You may view this report before your referring provider. If you have questions, please contact your health care provider. INDICATION: Abdominal pain. TECHNIQUE: CT scan of the abdomen and pelvis with 118 cc of Isovue-370 given intravenously. FINDINGS: The lung bases show trace dependent atelectasis. No focal abnormalities identified in the visualized portions of the liver, spleen, and adrenal glands. 2.0 cm cyst extending off the uncinate process of the pancreas. The pancreas is otherwise unremarkable. 2.6 cm cyst extending off the lower pole of the left kidney. Peripelvic cysts in both kidneys. 8 x 5 mm stone in the left renal pelvis. No hydronephrosis. 2 mm stone in the left UVJ is almost located in the urinary bladder. Colonic diverticulosis with no evidence of diverticulitis. The remainder of the GI tract is incompletely distended but shows no gross abnormalities. No retroperitoneal, pelvic sidewall, or mesenteric adenopathy. Atherosclerotic vascular calcifications. IMPRESSION: 1. 2 mm stone in the left UVJ is almost located in the urinary bladder. 2. 8 x 5 mm stone in the left renal pelvis. 3. No hydronephrosis. 4. 2.0 cm cyst extending off the uncinate process of the pancreas. Recommend follow-up abdominal MRI in 6 months to begin documentation of stability. Dictated by Neo Ruiz MD @ 12/23/2022 6:04:58 PM Please note that all CT scans at this facility use dose modulation, iterative reconstruction, and/or weight-based dosing when appropriate to reduce radiation dose to as low as reasonably achievable. Dictated by: Neo Ruiz MD @ 12/23/2022 18:05:05 (Electronically Signed)
--- NOTE | 2022-12-23 15:43 | ED.GENADULT ---
HPI - General Adult General Date Seen: 12/23/22 Chief complaint: Weakness Stated complaint: Constipation, vomiting Time Seen by Provider: 12/23/22 14:49 Source: patient and family Mode of arrival: ambulatory Limitations: no limitations History of Present Illness HPI narrative: Patient is a 72-year-old male who presents for evaluation of abdominal pain and vomiting. He does note that he has been constipated this week, with just small bowel movements, but had abrupt onset of upper abdominal pain associated with multiple episodes of vomiting at around 10:00 a.m.. He last vomited a couple of hours ago. He continues have upper abdominal pain which radiates to the back. He has not had any diarrhea, bloody stools, fever, urinary symptoms. Denies prior abdominal surgeries but he does think he has a history of diverticulitis, and also remotely thinks he had problems with an ulcer and feels that this maybe reminds him of that. He took a dose of MiraLax at home today but threw that up, also tried Tylenol but threw that up. He does not smoke, drinks rarely. I saw him earlier this year with some neurologic symptoms and he has since been diagnosed with myasthenia gravis. He occasionally takes medication for that but says he does not need it very often. Related Data Home Medications Medication Instructions Recorded Confirmed aspirin 81 mg capsule 81 mg PO DAILY 03/03/22 03/03/22 bisoprolol fumarate 5 mg tablet 5 mg PO DAILY 03/03/22 03/03/22 finasteride 5 mg tablet (Proscar) 5 mg PO DAILY 03/03/22 03/03/22 lisinopril 20 mg tablet 20 mg PO DAILY 03/03/22 03/03/22 lorazepam 0.5 mg tablet (Ativan) 0.5 mg PO HS PRN 03/03/22 03/04/22 magnesium citrate 100 mg capsule 100 mg PO DAILY 03/03/22 03/03/22 nitroglycerin 0.4 mg sublingual 0.4 mg sublingual Q5M 03/03/22 03/03/22 tablet (Nitrostat) triamterene 37.5 1 tab PO DAILY 03/03/22 03/03/22 mg-hydrochlorothiazide 25 mg tablet (Maxzide-25mg) KYOLIC 03/04/22 amlodipine 10 mg tablet 10 mg PO DAILY 03/04/22 03/04/22 coenzyme Q10 200 mg capsule (Co 200 mg PO DAILY 03/04/22 03/04/22 Q-10) indomethacin 50 mg capsule 50 mg PO Q6H PRN 03/04/22 03/04/22 sbymiqcl-ar-jydnz 300 mcg-K 60 1 tab PO DAILY 03/04/22 03/04/22 mcg-lycop 600 mcg-lutein 300 mcg tablet (Centrum Silver Men) Previous Rx's Medication Instructions Recorded atorvastatin 40 mg tablet (Lipitor) 80 mg (2 x 40 mg) PO DAILY #60 tabs 03/04/22 clopidogrel 75 mg tablet 75 mg PO DAILY #30 tabs 03/04/22 Allergies Allergy/AdvReac Type Severity Reaction Status Date / Time Beta-Blockers Allergy Unknown Verified 03/03/22 18:35 (Beta-Adrenergic Bloc Review of Systems Status of ROS: Reports: 10 or more systems reviewed and unremarkable except as noted in History and below [facility] Medical History Rotator cuff impingement syndrome of right shoulder ?M75.41 - Impingement syndrome of right shoulder (ICD-10) Colon polyps ?K63.5 - Polyp of colon (ICD-10) Presence of permanent cardiac pacemaker ?Z95.0 - Presence of cardiac pacemaker (ICD-10) Diverticulosis ?K57.90 - Diverticulosis of intestine, part unspecified, without perforation or abscess without bleeding (ICD-10) Obesity ?E66.9 - Obesity, unspecified (ICD-10) Hyperlipidemia ?E78.5 - Hyperlipidemia, unspecified (ICD-10) Psychophysiological insomnia ?F51.04 - Psychophysiologic insomnia (ICD-10) Benign prostatic hyperplasia ?N40.0 - Benign prostatic hyperplasia without lower urinary tract symptoms (ICD-10) Cataract ?H26.9 - Unspecified cataract (ICD-10) Gout ?M10.9 - Gout, unspecified (ICD-10) Coronary artery disease ?I25.10 - Atherosclerotic heart disease of [place] coronary artery without angina pectoris (ICD-10) Essential hypertension ?I10 - Essential (primary) hypertension (ICD-10) Obstructive sleep apnea ?G47.33 - Obstructive sleep apnea (adult) (pediatric) (ICD-10) Surgical History Stented coronary artery ?Z95.5 - Presence of coronary angioplasty implant and graft (ICD-10) Family History Sister Uterine cancer Father Dementia Mother Dementia Brother Malignant melanoma Social History Smoking Status: Never smoker Do you use any of these nicotine containing products: None Second hand tobacco smoke exposure: No How often do you have a drink containing alcohol: never How often do you have six or more drinks on one occasion: Never AUDIT-C Alcohol total score: 0 Non-prescribed substance use: denies use Caffeine: Yes (couple cups coffee per day) service: No Exam Narrative: Exam Narrative: Vital signs as noted above. In general, an alert, nontoxic elderly male. Looks comfortable. Head: Normocephalic, atraumatic. Eyes: Pupils are equal reactive. Extraocular movements are full. Conjunctivae are normal. ENT: Mucous membranes are moist. Throat is normal. Neck: Supple without lymphadenopathy. Heart: Regular rate and rhythm. No murmur or rub. Lungs: Clear bilaterally. No increased work of breathing, crackles or wheezes. Abdomen: Protuberant, soft, upper abdominal tenderness without rebound guarding or rigidity. Extremities: Well perfused. No edema. No calf tenderness. Pulses intact. Neurologic: Patient is alert and oriented to person and place. Speech is fluent. Face is symmetric. Moves all extremities equally. Affect: Normal. Skin: Warm and dry. Well perfused. Const: Vital Signs, click to edit/add: Vital Signs - 24 hr 12/23/22 14:49 12/23/22 16:57 12/23/22 16:58 Temperature 96.3 F L Pulse Rate 92 92 Pulse Rate [Pulse Oximeter] 86 Respiratory Rate 18 18 Blood Pressure 159/100 H Blood Pressure [Ri ght Upper Arm] 131/90 H Pulse Oximetry 93 96 96 Oxygen Delivery Me thod Room Air Room Air 12/23/22 17:00 12/23/22 17:02 12/23/22 17:15 Temperature Pulse Rate 90 91 90 Pulse Rate [Pulse Oximeter] Respiratory Rate 16 Blood Pressure 149/106 H Blood Pressure [Ri ght Upper Arm] Pulse Oximetry 96 95 94 Oxygen Delivery Me thod Room Air 12/23/22 17:30 12/23/22 17:31 12/23/22 17:45 Temperature Pulse Rate 92 87 89 Pulse Rate [Pulse Oximeter] Respiratory Rate 16 Blood Pressure 147/96 H Blood Pressure [Ri ght Upper Arm] Pulse Oximetry 95 94 94 Oxygen Delivery Me thod 12/23/22 18:00 12/23/22 18:02 12/23/22 18:15 Temperature Pulse Rate 90 89 91 Pulse Rate [Pulse Oximeter] Respiratory Rate 16 Blood Pressure 142/103 H Blood Pressure [Ri ght Upper Arm] Pulse Oximetry 95 95 94 Oxygen Delivery Me thod Room Air Documenting provider has reviewed patient's vital signs: yes Course Course Hospital Course: He because of the sudden onset of his symptoms and his age, I elected to evaluate him further for abdominal pain before treating for constipation. Other diagnostic considerations included biliary colic or cholecystitis, pancreatitis, peptic ulcer disease, perforated viscus, obstruction, kidney stone, pyelonephritis, among others. His labs are notable for a mildly elevated white blood cell count of 14.3, normal hemoglobin and platelets. Metabolic panel is normal, creatinine is 1.3. LFTs are essentially normal, AST is 43, ALT of 44. Bilirubin and alk-phos are normal. CRP is less than 0.5. Lipase is 25. Urinalysis showed greater than 100 red cells, definitely looked is grossly bloody. CT scan of the abdomen by my review showed a very large kidney stone essentially in the renal pelvis on the left. No hydronephrosis noted by the radiologist, they did feel he had a 2 mm stone in the very distal UVJ, almost in the bladder. He did not have anything for pain here, he did have some Zofran and some fluids. At the time of my re-evaluation he says he feels great, symptoms have resolved. It is possible that he passed that small stone. The large stone he is aware of, he had planned to talk to Urology about that but has not done so yet. Discussed that at this time it is not causing any acute problems. He is comfortable with discharge home, did request some Zofran just in case he has trouble with further nausea. Given that he has had difficulty with bowel movements the past couple of days would recommend continuing with MiraLax. Return at any time for fevers, chills, vomiting etcetera. I have asked him to strain his urine, push fluids. He will follow up with Urology in the near future, but if he has persistent abdominal pain, nausea etcetera he should be seen more urgently. I suspect that the 2 mm stone if it is not passed already will pass without incident, but if symptoms persist he should follow-up. Vital Signs Vital signs: Initial Vital Signs Temperature 96.3 F L 12/23/22 14:49 Temperature Source Temporal Artery Scan 12/23/22 14:49 Pulse Rate 86 12/23/22 14:49 Pulse Rhythm Regular 12/23/22 14:49 Respiratory Rate 18 12/23/22 14:49 Blood Pressure 131/90 H 12/23/22 14:49 Blood Pressure Mean 103 12/23/22 14:49 Blood Pressure Position Supine 12/23/22 14:49 Pulse Oximetry 93 12/23/22 14:49 Oxygen Delivery Method Room Air 12/23/22 14:49 Vital Signs Temperature 96.3 F L 12/23/22 14:49 Pulse Rate 86 12/23/22 14:49 Respiratory Rate 18 12/23/22 14:49 Blood Pressure 131/90 H 12/23/22 14:49 Pulse Oximetry 93 12/23/22 14:49 Oxygen Delivery Method Room Air 12/23/22 14:49 Temperature 96.3 F L 12/23/22 14:49 Pulse Rate 91 12/23/22 18:15 Respiratory Rate 16 12/23/22 18:02 Blood Pressure 142/103 H 12/23/22 18:02 Pulse Oximetry 94 12/23/22 18:15 Oxygen Delivery Method Room Air 12/23/22 18:02 Medical Decision Making Lab Data Labs: Lab Results 12/23/22 12/23/22 Range/Units 15:40 16:33 WBC 14.36 H (4.50-11.00) K/uL RBC 5.36 (4.30-5.90) m/uL Hgb 16.5 (13.5-17.5) gm/dL Hct 49.6 (37.0-53.0) % MCV 93 (80-100) fL MCH 31 (26-34) pg MCHC 33 (32-36) gm/dL RDW Coeff of Blue 13.7 (11.5-15.5) % Plt Count 305 (140-440) K/uL Neut % (Auto) 90.6 H (42.0-72.0) % Lymph % (Auto) 4.6 L (20-44) % Drew % (Auto) 4.2 (0.0-11.0) % Eos % (Auto) 0.1 (0.0-7.0) % Baso % (Auto) 0.2 (0.0-3.0) % Neut # (Auto) 13.00 H (1.7-7.0) K/uL Lymph # (Auto) 0.70 L (0.90-2.90) K/uL Drew # (Auto) 0.60 (0.00-0.90) K/UL Eos # (Auto) 0.00 (0.00-0.50) K/uL Baso # (Auto) 0.00 (0.00-0.30) K/uL Abs Immat Gran (auto) 0.00 (0.00-0.30) K/uL Imm/Tot Granulo (auto) 0.3 % Sodium 142 (135-149) mmol/L Potassium 3.9 (3.6-5.1) mmol/L Chloride 106 (96-114) mmol/L Carbon Dioxide 28 (20-32) mmol/L BUN 21 (7-30) mg/dL Creatinine 1.3 (0.5-1.5) mg/dL Estimated Creat Clear 51.36 Estimated GFR 58 ml/min Glucose 137 H (60-115) mg/dL Lactate 1.6 (0.5-1.9) mmol/L Calcium 10.0 (8.4-10.6) mg/dL Total Bilirubin 1.3 (0.1-1.5) mg/dL Direct Bilirubin 0.1 (0.0-0.5) mg/dL AST 43 H (12-35) U/L ALT 44 (4-50) U/L Alkaline Phosphatase 74 (40-150) U/L C-Reactive Protein < 0.5 L (0.5-1.0) mg/dL Total Protein 7.5 (6.0-8.3) g/dL Albumin 4.6 (3.3-5.0) g/dL Lipase 25 (23-300) U/L Urine Color Brown A (Yellow) Urine Appearance Cloudy A (Clear) Urine pH 5.5 (5.0-8.5) Ur Specific [place] >= 1.030 (1.000-1.030) Urine Protein 2+ A (Negative) Urine Glucose (UA) Negative (Negative) Urine Ketones 1+ A (Negative) Urine Blood 3+ A (Negative) Urine Nitrite Negative (Negative) Urine Bilirubin Negative (Negative) Urine Urobilinogen 0.2 (0.2-1.0) Ur Leukocyte Esterase Negative (Negative) Urine RBC >100 A (0-2) Urine WBC 0-2 (0-5) Ur Squamous Epith Cells Few (None-Few) Urine Bacteria None (None) Discharge Plan Discharge Clinical Impression: Kidney stones Patient Disposition: Home, Self-Care Condition: Improved Instructions: Kidney Stones (ED) Additional Instructions: Strain urine, push fluids. If you remain asymptomatic, you can follow-up as planned with Urology at your leisure. For severe uncontrolled pain, fever, vomiting, or other worsening symptoms return to the emergency department. If you have persistent pain, you should be seen by Urology more urgently. Follow-up for abdominal MRI in 6 months with primary care. Prescriptions: No Action aspirin 81 mg capsule 81 mg PO DAILY bisoprolol fumarate 5 mg tablet 5 mg PO DAILY finasteride [Proscar] 5 mg tablet 5 mg PO DAILY lisinopril 20 mg tablet 20 mg PO DAILY Hold Instructions: Resume on 03/06/22. lorazepam [Ativan] 0.5 mg tablet 0.5 mg PO HS PRN magnesium citrate 100 mg capsule 100 mg PO DAILY nitroglycerin [Nitrostat] 0.4 mg tablet, sublingual 0.4 mg sublingual Q5M Rx Instructions: do not exceed 3 doses per episode triamterene-hydrochlorothiazid [Maxzide-25mg] 37.5-25 mg tablet 1 tab PO DAILY Hold Instructions: Resume on 03/06/22. amlodipine 10 mg tablet 10 mg PO DAILY Hold Instructions: Resume on 03/06/22. Patient Comments: Take 1 Tablet (10 mg) by mouth once daily indomethacin 50 mg capsule 50 mg PO Q6H PRN Hold Instructions: Resume on 04/05/22. Patient Comments: Take 1 Capsule (50 mg) by mouth every 6 hours if needed for Gout Pain. Centrum Silver Men 300-600-300 mcg tablet 1 tab PO DAILY KYOLIC 100 mg capsule Rx Instructions: KYOLIC GARLIC coenzyme Q10 [Co Q-10] 200 mg capsule 200 mg PO DAILY atorvastatin [Lipitor] 40 mg Tablet 80 mg PO DAILY Qty: 60 0RF clopidogrel 75 mg tablet 75 mg PO DAILY Qty: 30 0RF Follow Up/Referrals: Provider,Not a Local [Primary Care Provider] - Stand Alone Forms: [employer] Info Instructions
[2022-12-23 15:48] LABS: Basophils Percent Auto 0.2 % (0.0-3.0); Eosinophils Percent Auto 0.1 % (0.0-7.0); Hematocrit 49.6 % (37.0-53.0); Hemoglobin* 16.5 gm/dL (13.5-17.5); Immature Granulocytes Pct Auto 0.3 %; Lactate Sepsis w/Reflex* 1.6 mmol/L (0.5-1.9); Lymphocytes Percent Auto 4.6 % (20-44); Mean Corpuscular HGB Conc 33 gm/dL (32-36); Mean Corpuscular Hemoglobin 31 pg (26-34); Mean Corpuscular Volume 93 fL (80-100); Monocytes Percent Auto 4.2 % (0.0-11.0); Neutrophils Percent Auto 90.6 % (42.0-72.0); Platelet Count* 305 K/uL (140-440); RDW Coefficient of Variation % 13.7 % (11.5-15.5); Red Blood Count 5.36 m/uL (4.30-5.90); White Blood Count* 14.36 K/uL (4.50-11.00)
[2022-12-23 15:49] LABS: Slide Review Reflex No
[2022-12-23] MEDS: ONDANSETRON 2 MG/ML inj 4 MG IVP (15:50)
[2022-12-23 16:03] LABS: Albumin* 4.6 g/dL (3.3-5.0); Chloride* 106 mmol/L (96-114)
[2022-12-23 16:04] LABS: Potassium* 3.9 mmol/L (3.6-5.1); Sodium* 142 mmol/L (135-149)
[2022-12-23 16:06] LABS: Alkaline Phosphatase* 74 U/L (40-150); Aspartate Amino Transferase* 43 U/L (12-35); Bilirubin Direct* 0.1 mg/dL (0.0-0.5); Bilirubin Total* 1.3 mg/dL (0.1-1.5); Carbon Dioxide* 28 mmol/L (20-32); Creatinine* 1.3 mg/dL (0.5-1.5); Est. Creatinine Clearance* 51.36; Estimated Glomerular Filt Rate 58 ml/min; Total Protein* 7.5 g/dL (6.0-8.3)
[2022-12-23 16:07] LABS: Alanine Aminotransferase* 44 U/L (4-50); Blood Urea Nitrogen* 21 mg/dL (7-30); Glucose* 137 mg/dL (60-115); Lipase* 25 U/L (23-300)
[2022-12-23 16:12] LABS: C Reactive Protein* < 0.5 mg/dL (0.5-1.0)
[2022-12-23 16:42] LABS: Bilirubin Urine Negative (Negative); Blood Urine 3+ (Negative); Color Urine Brown (Yellow); Glucose Urine Negative (Negative); Ketones Urine 1+ (Negative); Leukocyte Esterase Urine Negative (Negative); Nitrite Urine Negative (Negative); Protein Urine 2+ (Negative); Specific Gravity Urine >= 1.030 (1.000-1.030); Urobilinogen Urine 0.2 (0.2-1.0); pH Urine 5.5 (5.0-8.5)
[2022-12-23 16:50] LABS: Appearance Urine Cloudy (Clear); RBC Urine >100 (0-2); Squamous Epithelial Cell Urine Few (None-Few); WBC Urine 0-2 (0-5)
[2022-12-23] MEDS: 0.9 % SODIUM CHLORIDE 1000 ml 1,000 ML IV (16:55)
== END 2022-12-23 18:43 | disposition home or self-care (01) ==
PROVIDERS: Emergency Provider Emergency Medicine
DX: N20.0 Calculus of kidney (principal)
CPT/HCPCS: 36415; 74177; 80048; 80076; 81001; 83605; 83690; 85025; 86140; 99283; 99284; J2405; J7030; Q9967

== ENCOUNTER 2023-02-24 10:52 | Emergency (ER) | payer MEDICARE, BC, SELFPAY ==
[2023-02-24 10:59] VITALS: BP 135/89; PULSE 61; RESP 16; O2SAT 98
[2023-02-24 11:00] VITALS: BP 137/90; PULSE 75; RESP 18; TEMP 36.9; O2SAT 94; BMI 34.0
[2023-02-24 11:16] VITALS: BP 139/86; PULSE 70; RESP 16; O2SAT 98
--- NOTE | 2023-02-24 11:16 | CRLHL7_ITS ---
For Patients: As a result of the Cures Act, medical imaging exams and procedure reports are released immediately into your electronic medical record. You may view this report before your referring provider. If you have questions, please contact your health care provider. HISTORY: Fall. Shoulder pain. TECHNIQUE: Three views of the right shoulder. COMPARISON: No prior. FINDINGS: Glenohumeral joint degenerative arthrosis with moderate humeral head marginal osteophyte formation. Moderate AC joint degenerative changes. There is no acute fracture or dislocation. Acromiohumeral interval appears patent. No abnormality within the included right lung. IMPRESSION: 1. Right glenohumeral and AC joint degenerative changes. 2. No fracture or dislocation. Dictated by Jarett Perez MD @ 02/24/2023 11:34:36 AM Dictated by: Jarett Perez MD @ 02/24/2023 11:34:51 (Electronically Signed)
--- NOTE | 2023-02-24 11:20 | ED.GENADULT ---
HPI - General Adult General Date Seen: 02/24/23 Chief complaint: Extremity Pain/Injury, Upper Stated complaint: Fall, shoulder pain Time Seen by Provider: 02/24/23 11:06 Source: patient Mode of arrival: ambulatory Limitations: no limitations History of Present Illness HPI narrative: Patient is a 75-year-old male presenting to the emergency department for right shoulder pain and concerns about his pacemaker. Patient states 1 week ago he was trying to picker feeder something off the floor next to his bed. His nail is better at that time and fell off the bed landing on his right shoulder. Denies hitting his head. Since then he has movement of his right shoulder just some mild pain noted to it. He then looked at his Fitbit today and was seen he had abnormal rhythm. He states this done this in the past also. So he is unsure how accurate that is. Denies chest pain, shortness of breath lightheadedness, dizziness, fevers, chills, weakness, numbness. States something similar happened a year ago after a fall that he was evaluated in nothing was done with the pacemaker. States that at that time the company that monitors his pacemaker called him on Sunday to ask all he was doing house and abnormality his pacemaker. He states he is only here as an abundance of caution. Related Data Home Medications Medication Instructions Recorded Confirmed aspirin 81 mg capsule 81 mg PO DAILY 03/03/22 03/03/22 bisoprolol fumarate 5 mg tablet 5 mg PO DAILY 03/03/22 03/03/22 finasteride 5 mg tablet (Proscar) 5 mg PO DAILY 03/03/22 03/03/22 lisinopril 20 mg tablet 20 mg PO DAILY 03/03/22 03/03/22 lorazepam 0.5 mg tablet (Ativan) 0.5 mg PO HS PRN 03/03/22 03/04/22 magnesium citrate 100 mg capsule 100 mg PO DAILY 03/03/22 03/03/22 nitroglycerin 0.4 mg sublingual 0.4 mg sublingual Q5M 03/03/22 03/03/22 tablet (Nitrostat) triamterene 37.5 1 tab PO DAILY 03/03/22 03/03/22 mg-hydrochlorothiazide 25 mg tablet (Maxzide-25mg) KYOLIC 03/04/22 amlodipine 10 mg tablet 10 mg PO DAILY 03/04/22 03/04/22 coenzyme Q10 200 mg capsule (Co 200 mg PO DAILY 03/04/22 03/04/22 Q-10) indomethacin 50 mg capsule 50 mg PO Q6H PRN 03/04/22 03/04/22 admypqil-po-gcdza 300 mcg-K 60 1 tab PO DAILY 03/04/22 03/04/22 mcg-lycop 600 mcg-lutein 300 mcg tablet (Centrum Silver Men) Previous Rx's Medication Instructions Recorded atorvastatin 40 mg tablet (Lipitor) 80 mg (2 x 40 mg) PO DAILY #60 tabs 03/04/22 clopidogrel 75 mg tablet 75 mg PO DAILY #30 tabs 03/04/22 Allergies Allergy/AdvReac Type Severity Reaction Status Date / Time Beta-Blockers Allergy Unknown Verified 03/03/22 18:35 (Beta-Adrenergic Bloc Review of Systems Status of ROS: Reports: 10 or more systems reviewed and unremarkable except as noted in History and below [facility] Medical History Rotator cuff impingement syndrome of right shoulder ?M75.41 - Impingement syndrome of right shoulder (ICD-10) Colon polyps ?K63.5 - Polyp of colon (ICD-10) Presence of permanent cardiac pacemaker ?Z95.0 - Presence of cardiac pacemaker (ICD-10) Diverticulosis ?K57.90 - Diverticulosis of intestine, part unspecified, without perforation or abscess without bleeding (ICD-10) Obesity ?E66.9 - Obesity, unspecified (ICD-10) Hyperlipidemia ?E78.5 - Hyperlipidemia, unspecified (ICD-10) Psychophysiological insomnia ?F51.04 - Psychophysiologic insomnia (ICD-10) Benign prostatic hyperplasia ?N40.0 - Benign prostatic hyperplasia without lower urinary tract symptoms (ICD-10) Cataract ?H26.9 - Unspecified cataract (ICD-10) Gout ?M10.9 - Gout, unspecified (ICD-10) Coronary artery disease ?I25.10 - Atherosclerotic heart disease of [place] coronary artery without angina pectoris (ICD-10) Essential hypertension ?I10 - Essential (primary) hypertension (ICD-10) Obstructive sleep apnea ?G47.33 - Obstructive sleep apnea (adult) (pediatric) (ICD-10) Surgical History Stented coronary artery ?Z95.5 - Presence of coronary angioplasty implant and graft (ICD-10) Family History Sister Uterine cancer Father Dementia Mother Dementia Brother Malignant melanoma Social History Smoking Status: Never smoker Do you use any of these nicotine containing products: None Second hand tobacco smoke exposure: No How often do you have a drink containing alcohol: never How often do you have six or more drinks on one occasion: Never AUDIT-C Alcohol total score: 0 Non-prescribed substance use: denies use Caffeine: Yes (couple cups coffee per day) service: No Exam Narrative: Exam Narrative: Const: Well-nourished, Well-developed, in no distress Eyes: PERRL, no conjunctival injection, and symmetrical lids HENT: Atraumatic external nose and ears. Moist mucous membranes. Neck: Symmetric, trachea midline, No thyromegaly. CVS: RRR, No murmurs or gallops. Peripheral pulses 2+ and equal in all extremities RESP: Unlabored respiratory effort. Clear to auscultation bilaterally. GI: Nontender/Nondistended, No rebound or guarding. MSK:Extremities w/o deformity, Normal Active ROM. Mild right shoulder tenderness Skin: Warm, Dry. No rashes or lesions. Neuro: Normal Muscle tone, No focal neurological deficits. Psych: Awake, Alert, & Oriented x3. Appropriate mood and affect. Const: Vital Signs, click to edit/add: Vital Signs - 24 hr 02/24/23 11:00 Temperature 98.5 F Pulse Rate [Pulse Oximeter] 75 Respiratory Rate 18 Blood Pressure [Ri ght Upper Arm] 137/90 H Pulse Oximetry 94 Oxygen Delivery Me thod Room Air Course Vital Signs Vital signs: Initial Vital Signs Temperature 98.5 F 02/24/23 11:00 Temperature Source Temporal Artery Scan 02/24/23 11:00 Pulse Rate 75 02/24/23 11:00 Pulse Rhythm Regular 02/24/23 11:00 Respiratory Rate 18 02/24/23 11:00 Blood Pressure 137/90 H 02/24/23 11:00 Blood Pressure Mean 105 02/24/23 11:00 Blood Pressure Position Sitting 02/24/23 11:00 Pulse Oximetry 94 02/24/23 11:00 Oxygen Delivery Method Room Air 02/24/23 11:00 Vital Signs Temperature 98.5 F 02/24/23 11:00 Pulse Rate 75 02/24/23 11:00 Respiratory Rate 18 02/24/23 11:00 Blood Pressure 137/90 H 02/24/23 11:00 Pulse Oximetry 94 02/24/23 11:00 Oxygen Delivery Method Room Air 02/24/23 11:00 Temperature 98.5 F 02/24/23 11:00 Pulse Rate 75 02/24/23 11:00 Respiratory Rate 18 02/24/23 11:00 Blood Pressure 137/90 H 02/24/23 11:00 Pulse Oximetry 94 02/24/23 11:00 Oxygen Delivery Method Room Air 02/24/23 11:00 Medical Decision Making MDM Narrative Medical decision making narrative: Patient is 72-year-old male presents emergency department for right shoulder discomfort and concern about his pacemaker. He has full range of motion of his right shoulder at this time. We will do an x-ray of the right shoulder to rule out any fractures. When it comes to the pacemaker we will do an EKG and a monitoring engineer. He states he has been feeling well. Had something similar happened a year ago after a fall. Never needed any adjustment to his pacemaker. We did do an EKG showing no concerning abnormalities. We did have 1 heart monitors entire time large department in also showed no concerning abnormalities. He is otherwise medically stable throughout his time in emergency department. At this time we are unable to irrigate his pacemaker leads and I believe it is necessary at this time any ways. His x-ray showed no concerning abnormalities. She will be discharged home he is agreeable with this plan Imaging Data Right shoulder x-ray: Radiologist's impression: HISTORY: Fall. Shoulder pain. TECHNIQUE: Three views of the right shoulder. COMPARISON: No prior. FINDINGS: Glenohumeral joint degenerative arthrosis with moderate humeral head marginal osteophyte formation. Moderate AC joint degenerative changes. There is no acute fracture or dislocation. Acromiohumeral interval appears patent. No abnormality within the included right lung. IMPRESSION: 1. Right glenohumeral and AC joint degenerative changes. 2. No fracture or dislocation. Dictated by Jarett Perez MD @ 02/24/2023 11:34:36 AM ECG Data Attestation: I personally reviewed and interpreted this ECG as follows: Prior ECG tracings: available for review Interpretation: Ventricular paced rhythm. Rate of 81 beats per minute, normal intervals, normal axis, no ST or T-wave abnormalities. Discordance appears appropriate Discharge Plan Discharge Clinical Impression: Right shoulder pain Qualifiers: Chronicity: acute Qualified Code(s): M25.511 - Pain in right shoulder Patient Disposition: Home, Self-Care Condition: Stable Instructions: Shoulder Pain (ED) Additional Instructions: Follow-up with your primary care provider or manager disaster recovery if you continue to have any concerns about to pacemaker. If he develops any new or worsening symptoms please return to the emergency department immediately. Prescriptions: No Action aspirin 81 mg capsule 81 mg PO DAILY bisoprolol fumarate 5 mg tablet 5 mg PO DAILY finasteride [Proscar] 5 mg tablet 5 mg PO DAILY lisinopril 20 mg tablet 20 mg PO DAILY Hold Instructions: Resume on 03/06/22. lorazepam [Ativan] 0.5 mg tablet 0.5 mg PO HS PRN magnesium citrate 100 mg capsule 100 mg PO DAILY nitroglycerin [Nitrostat] 0.4 mg tablet, sublingual 0.4 mg sublingual Q5M Rx Instructions: do not exceed 3 doses per episode triamterene-hydrochlorothiazid [Maxzide-25mg] 37.5-25 mg tablet 1 tab PO DAILY Hold Instructions: Resume on 03/06/22. amlodipine 10 mg tablet 10 mg PO DAILY Hold Instructions: Resume on 03/06/22. Patient Comments: Take 1 Tablet (10 mg) by mouth once daily indomethacin 50 mg capsule 50 mg PO Q6H PRN Hold Instructions: Resume on 04/05/22. Patient Comments: Take 1 Capsule (50 mg) by mouth every 6 hours if needed for Gout Pain. Centrum Silver Men 300-600-300 mcg tablet 1 tab PO DAILY KYOLIC 100 mg capsule Rx Instructions: KYOLIC GARLIC coenzyme Q10 [Co Q-10] 200 mg capsule 200 mg PO DAILY atorvastatin [Lipitor] 40 mg Tablet 80 mg PO DAILY Qty: 60 0RF clopidogrel 75 mg tablet 75 mg PO DAILY Qty: 30 0RF Follow Up/Referrals: Provider,Not a Local [Primary Care Provider] - Stand Alone Forms: [employer] Info Instructions
[2023-02-24 12:00] VITALS: BP 123/95; PULSE 70; RESP 16; O2SAT 98
== END 2023-02-24 12:37 | disposition home or self-care (01) ==
PROVIDERS: Emergency Provider Student in an Organized Health Care Education/Training Program
DX: M25.511 Pain in right shoulder (principal)
CPT/HCPCS: 73030; 93005; 99283; 99284